=== PATIENT | male | born 1965 | race Asian ===

== ENCOUNTER 2021-06-06 13:54 | Inpatient (IN) | payer MEDICAID ==
[~2021-06-06] VITALS: Ht 165.1 cm; Wt 73.5 kg
[2021-06-06] MEDS ORDERED: ASPI-1444 PO (15:59)
[2021-06-06] MEDS ORDERED: CLOP75TA60 PO (15:59)
[2021-06-06] MEDS ORDERED: FAMO20 PO (15:59)
[2021-06-06] MEDS ORDERED: ATOR40TA28 PO (15:59)
[2021-06-06] MEDS ORDERED: HYDR25TA2 PO (16:01)
[2021-06-06] MEDS ORDERED: LISI-893 PO (16:01)
[2021-06-06] MEDS ORDERED: MIRT-89 PO (16:01)
[2021-06-06 18:55] VITALS: BP 149/77
[2021-06-06] MEDS ORDERED: OLAN5TAB94 PO (19:40)
[2021-06-06] MEDS ORDERED: FLUO10CA24 PO (19:40)
[2021-06-06] MEDS ORDERED: TRAZ-252 PO (19:40)
[2021-06-06] MEDS: ZOLPIDEM TARTRATE 10 MG TABLET PO PRN (20:58)
[2021-06-06] MEDS: TraZODone HCL 50 MG TABLET PO SCH (21:07)
[2021-06-06] MEDS: MIRTAZAPINE 15 MG TABLET PO SCH (21:07)
[2021-06-06] MEDS ORDERED: MAG HYDROX/AL HYDROX/SIMETH ES 30 ML SUSPENSION UDCUP PO PRN (21:15)
[2021-06-06] MEDS ORDERED: BENZOCAINE/MENTHOL LOZENGE PO PRN (21:15)
[2021-06-06] MEDS ORDERED: IBUPROFEN 600 MG TABLET PO PRN (21:15)
[2021-06-06] MEDS ORDERED: DOCUSATE SODIUM 100 MG CAPSULE PO PRN (21:15)
[2021-06-06] MEDS ORDERED: MAGNESIUM HYDROXIDE SUSPENSION 30 ML UDCUP PO PRN (21:15)
[2021-06-06] MEDS ORDERED: CloNIDine HCL 0.1 MG TABLET PO PRN (21:15)
[2021-06-06] MEDS ORDERED: ALBUTEROL SULFATE HFA 90 MCG/PUFF 8 GM INHALER IH PRN (21:15)
[2021-06-06] MEDS ORDERED: LOPERAMIDE HCL 2 MG CAPSULE PO PRN (21:15)
[2021-06-06] MEDS ORDERED: PETROLATUM,WHITE 28 GM JELLY TP PRN (21:15)
[2021-06-06] MEDS ORDERED: ACETAMINOPHEN 325 MG TABLET PO PRN (21:15)
[2021-06-06] MEDS ORDERED: BACITRACIN 28 GM OINTMENT TP PRN (21:15)
[2021-06-06] MEDS ORDERED: ONDANSETRON HCL 4 MG TABLET PO PRN (21:15)
[2021-06-07 01:55] VITALS: BP 141/78
[2021-06-07 08:10] VITALS: BP 131/80
[2021-06-07] MEDS: ATORVASTATIN CALCIUM 40 MG TABLET PO SCH (08:38)
[2021-06-07] MEDS: FAMOTIDINE 20 MG TABLET PO SCH (08:38)
[2021-06-07] MEDS: ASPIRIN 81 MG DR TABLET PO SCH (08:38)
[2021-06-07] MEDS: HYDROCHLOROTHIAZIDE 25 MG TABLET PO SCH (08:38)
[2021-06-07] MEDS: LORazepam 2 MG TABLET PO PRN ×2 (08:38→18:15)
[2021-06-07] MEDS: FLUoxetine HCL 20 MG CAPSULE PO SCH (08:38)
[2021-06-07] MEDS: CLOPIDOGREL BISULFATE 75 MG TABLET PO SCH (08:38)
[2021-06-07] MEDS: LISINOPRIL 10 MG TABLET PO SCH (08:39)
[2021-06-07] MEDS: HALOPERIDOL 5 MG TABLET PO PRN (09:38)
[2021-06-07 16:18] VITALS: BP 134/86
[2021-06-07] MEDS: TraZODone HCL 50 MG TABLET PO SCH (20:10)
[2021-06-07] MEDS: MIRTAZAPINE 15 MG TABLET PO SCH (20:10)
[2021-06-08 00:36] VITALS: BP 133/79
[2021-06-08 08:12] VITALS: BP 143/89
[2021-06-08] MEDS: ATORVASTATIN CALCIUM 40 MG TABLET PO SCH (08:48)
[2021-06-08] MEDS: HYDROCHLOROTHIAZIDE 25 MG TABLET PO SCH (08:48)
[2021-06-08] MEDS: ASPIRIN 81 MG DR TABLET PO SCH (08:48)
[2021-06-08] MEDS: CLOPIDOGREL BISULFATE 75 MG TABLET PO SCH (08:48)
[2021-06-08] MEDS: LISINOPRIL 10 MG TABLET PO SCH (08:48)
[2021-06-08] MEDS: FAMOTIDINE 20 MG TABLET PO SCH (08:48)
[2021-06-08] MEDS: FLUoxetine HCL 20 MG CAPSULE PO SCH (08:48)
[2021-06-08] MEDS: LORazepam 2 MG TABLET PO PRN ×2 (09:00→20:17)
[2021-06-08] MEDS: HALOPERIDOL 5 MG TABLET PO PRN ×2 (09:00→20:17)
[2021-06-08 16:20] VITALS: BP 142/80
[2021-06-08] MEDS: TraZODone HCL 50 MG TABLET PO SCH (20:16)
[2021-06-08] MEDS: ZOLPIDEM TARTRATE 10 MG TABLET PO PRN (20:17)
[2021-06-08] MEDS: MIRTAZAPINE 15 MG TABLET PO SCH (20:17)
[2021-06-09 04:25] VITALS: BP 115/66
[2021-06-09 08:26] VITALS: BP 130/79
[2021-06-09] MEDS: FAMOTIDINE 20 MG TABLET PO SCH (09:16)
[2021-06-09] MEDS: FLUoxetine HCL 20 MG CAPSULE PO SCH (09:16)
[2021-06-09] MEDS: LISINOPRIL 10 MG TABLET PO SCH (09:17)
[2021-06-09] MEDS: HYDROCHLOROTHIAZIDE 25 MG TABLET PO SCH (09:17)
[2021-06-09] MEDS: CLOPIDOGREL BISULFATE 75 MG TABLET PO SCH (09:17)
[2021-06-09] MEDS: ATORVASTATIN CALCIUM 40 MG TABLET PO SCH (09:17)
[2021-06-09] MEDS: ASPIRIN 81 MG DR TABLET PO SCH (09:18)
[2021-06-09] MEDS: LORazepam 2 MG TABLET PO PRN (12:44)
[2021-06-09 15:51] LABS: APPEARANCE,URINE CLEAR (CLEAR); BILIRUBIN,URINE NEGATIVE (NEGATIVE); GLUCOSE, URINE (UA) NEGATIVE (NEGATIVE); KETONES,URINE NEGATIVE (NEGATIVE); LEUKOCYTE ESTERASE ,URINE NEGATIVE (NEGATIVE); NITRATE,URINE NEGATIVE (NEGATIVE); OCCULT BLOOD,URINE LARGE (NEGATIVE); PH,URINE 5.5 (5.0-8.0); PROTEIN,URINE NEGATIVE (NEGATIVE); UROBILINOGEN,URINE 0.2 mg/dL (<=1.0)
[2021-06-09 15:56] LABS: AMPHET/METH SCREEN,URINE NEGATIVE (NEGATIVE); BARBITURATE SCREEN, URINE NEGATIVE (NEGATIVE); BENZODIAZEPINES SCREEN,URINE NEGATIVE (NEGATIVE); CANNABINOID SCREEN,URINE NEGATIVE (NEGATIVE); COCAINE SCREEN,URINE NEGATIVE (NEGATIVE); METHADONE SCREEN, URINE NEGATIVE (NEGATIVE); OPIATE SCREEN,URINE NEGATIVE (NEGATIVE); PHENCYCLIDINE SCREEN,URINE NEGATIVE (NEGATIVE)
[2021-06-09 16:00] LABS: BACTERIA,URINE Rare /HPF (None Seen); RBC,URINE 26-50 /HPF (0-2); WBC,URINE 0-2 /HPF (0-5)
[2021-06-09 16:01] LABS: SQUAMOUS EPITHELIAL CELL,UR Rare /LPF (None Seen)
[2021-06-09 16:13] VITALS: BP 136/82
[2021-06-09] MEDS: TraZODone HCL 50 MG TABLET PO SCH (20:36)
[2021-06-09] MEDS: MIRTAZAPINE 15 MG TABLET PO SCH (20:36)
[2021-06-09] MEDS: ZOLPIDEM TARTRATE 10 MG TABLET PO PRN (20:36)
[2021-06-10 05:41] VITALS: BP 149/81
[2021-06-10 08:26] VITALS: BP 139/93
[2021-06-10] MEDS: HYDROCHLOROTHIAZIDE 25 MG TABLET PO SCH (09:03)
[2021-06-10] MEDS: ATORVASTATIN CALCIUM 40 MG TABLET PO SCH (09:03)
[2021-06-10] MEDS: LISINOPRIL 10 MG TABLET PO SCH (09:04)
[2021-06-10] MEDS: FLUoxetine HCL 20 MG CAPSULE PO SCH (09:04)
[2021-06-10] MEDS: FAMOTIDINE 20 MG TABLET PO SCH (09:04)
[2021-06-10] MEDS: CLOPIDOGREL BISULFATE 75 MG TABLET PO SCH (09:04)
[2021-06-10] MEDS: ASPIRIN 81 MG DR TABLET PO SCH (09:05)
[2021-06-10] MEDS: LORazepam 2 MG TABLET PO PRN ×3 (10:34→12:05)
[2021-06-10 16:21] VITALS: BP 153/81
[2021-06-10] MEDS: ZOLPIDEM TARTRATE 10 MG TABLET PO PRN (20:41)
[2021-06-10] MEDS: TraZODone HCL 50 MG TABLET PO SCH (20:41)
[2021-06-10] MEDS: MIRTAZAPINE 15 MG TABLET PO SCH (20:41)
[2021-06-11 06:32] VITALS: BP 113/67
[2021-06-11 08:24] LABS: COVID AG,FIA SOURCE NASAL SWAB
[2021-06-11 08:26] LABS: BASOPHILS % (AUTO) 0.6 % (0.0-2.0); EOSINOPHILS % (AUTO) 2.7 % (1.0-6.0); HEMATOCRIT 41.2 % (41-53); HEMOGLOBIN 13.6 g/dL (13.5-17.5); LYMPHOCYTES # (AUTO) 2.3 K/uL (1.0-4.8); LYMPHOCYTES % (AUTO) 29.3 % (22.0-44.0); MEAN CORPUSCULAR HEMOGLOBIN 29.9 pg (26.0-34.0); MEAN CORPUSCULAR HGB CONC 33.1 G/dL (31.0-37.0); MEAN CORPUSCULAR VOLUME 90 fL (80-100); MONOCYTES # (AUTO) 0.6 K/uL (0.1-1.0); NEUTROPHILS # (AUTO) 4.8 K/uL (1.8-7.7); NEUTROPHILS % (AUTO) 60.4 % (40.0-70.0); PLATELET COUNT (AUTO) 365 K/uL (150-450); RED BLOOD CELL COUNT(AUTO) 4.57 MIL/uL (4.50-5.90); RED CELL DISTRIBUTION WIDTH 13.8 % (11.5-14.5)
[2021-06-11] MEDS: LORazepam 2 MG TABLET PO PRN (08:30)
[2021-06-11 08:37] VITALS: BP 127/72
[2021-06-11 08:42] LABS: HEMOGLOBIN A1C 6.5 % (3.8-5.6)
[2021-06-11] MEDS: CLOPIDOGREL BISULFATE 75 MG TABLET PO SCH (08:51)
[2021-06-11] MEDS: FLUoxetine HCL 20 MG CAPSULE PO SCH (08:51)
[2021-06-11] MEDS: ATORVASTATIN CALCIUM 40 MG TABLET PO SCH (08:51)
[2021-06-11] MEDS: LISINOPRIL 10 MG TABLET PO SCH (08:51)
[2021-06-11] MEDS: ASPIRIN 81 MG DR TABLET PO SCH (08:51)
[2021-06-11] MEDS: FAMOTIDINE 20 MG TABLET PO SCH (08:51)
[2021-06-11] MEDS: HYDROCHLOROTHIAZIDE 25 MG TABLET PO SCH (08:51)
[2021-06-11 08:57] LABS: ALBUMIN 4.1 g/dL (3.4-5.0); BILIRUBIN,TOTAL 0.6 mg/dL (0.1-1.0); CALCIUM, TOTAL 9.6 mg/dL (8.8-10.5); CHOL/HDL RATIO 2.4 (4.2-7.3); CREATININE 1.37 mg/dL (0.60-1.30); FREE T4 (FREE THYROXINE) 1.09 ng/dL (0.76-1.46); THYROID STIMULATING HORMONE 0.69 uIU/mL (0.36-3.74); TOTAL PROTEIN, SERUM 8.5 g/dL (6.4-8.2)
[2021-06-11] MEDS: HALOPERIDOL 5 MG TABLET PO PRN (09:35)
[2021-06-11 16:27] VITALS: BP 106/62
== END 2021-06-11 19:15 | disposition home or self-care (01) | DRG 754 ==
LOC: B2S 17:55
PROVIDERS: ADMIT Psychiatry & Neurology Psychiatry; ATTEND Psychiatry & Neurology Psychiatry
DX: F32.9 Major depressive disorder, single episode, unspecified (principal); E78.5 Hyperlipidemia, unspecified; F41.9 Anxiety disorder, unspecified; I10 Essential (primary) hypertension; G47.00 Insomnia, unspecified; K59.00 Constipation, unspecified; K21.9 Gastro-esophageal reflux disease without esophagitis; Z20.822 Contact with and (suspected) exposure to COVID-19; Z86.73 Personal history of transient ischemic attack (TIA), and cerebral infarction without residual deficits
CPT/HCPCS: 80053; 80061; 80307; 81001; 83036; 84439; 84443; 85025